=== PATIENT | male | born 1945 | race Caucasian/White ===

== ENCOUNTER 2017-08-25 19:30 | Outpatient (CLI) | payer MEDICARE | END 2017-08-25 19:31 | disposition home or self-care (01) | LOC: SLEEPLAB 19:30 | PROVIDERS: ATTEND Internal Medicine Critical Care Medicine | DX: G47.33 Obstructive sleep apnea (adult) (pediatric) (principal); F51.9 Sleep disorder not due to a substance or known physiological condition, unspecified; I48.91 Unspecified atrial fibrillation | CPT/HCPCS: 95811 ==